=== PATIENT | female | born 2000 | race Caucasian/White ===

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

== ENCOUNTER 2019-02-01 02:09 | Emergency (ER) | payer OTHER ==
[2019-02-01 02:19] VITALS: BP 134/90; PULSE 118; RESP 15; TEMP 99
--- NOTE | 2019-02-01 02:28 | XR ---
EXAM: XR Right Ankle Complete, 3 or More Views CLINICAL HISTORY: ITS.REASON XR Reason: Pain , twisted ankle TECHNIQUE: Frontal, lateral and oblique views of the right ankle. COMPARISON: No relevant prior studies available. FINDINGS: Bones/joints: No acute fracture. Soft tissues: No radiopaque foreign body. IMPRESSION: No acute fracture.
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
== END 2019-02-01 02:54 | disposition home or self-care (01) ==
LOC: EC 02:09
DX: S93.401A Sprain of unspecified ligament of right ankle, initial encounter (principal); J45.909 Unspecified asthma, uncomplicated; F17.200 Nicotine dependence, unspecified, uncomplicated; Y04.2XXA Assault by strike against or bumped into by another person, initial encounter; Y92.89 Other specified places as the place of occurrence of the external cause
CPT/HCPCS: 99284

== ENCOUNTER 2019-02-27 07:31 | Emergency (ER) | payer OTHER ==
[2019-02-27 07:38] VITALS: BP 113/69; PULSE 80; RESP 18; TEMP 98.7
[2019-02-27 08:09] LABS: Appearance,Urine Clear (Clear); Bilirubin,Urine Negative (Negative); Blood,Urine Negative (Negative); Color,Urine Yellow; Glucose,Urine (UA) Negative (Negative); Ketones,Urine Negative (Negative); Leukocyte Esterase,Urine Negative (Negative); Nitrite,Urine Negative (Negative); Protein,Urine Negative (Negative); Specific Gravity,Urine 1.013 (1.001-1.035); Urobilinogen,Urine <2.0 mg/dL (<2.0)
--- NOTE | 2019-02-27 08:14 | ED ---
General Adult HPI - General Chief complaint: Abdominal Pain Stated complaint: Abd Pain Time Seen by Provider: 02/27/19 08:06 Source: patient, RN notes reviewed, old records reviewed Mode of arrival: ambulatory Limitations: no limitations - History of Present Illness Initial comments: Patient is a 18-year-old female who presents emergency room today with 1 day of vaginal cramping. She reports over the past 3 days she's been having brown odor vaginal discharge. Patient states that she did take a test few days: Is negative. Patient reports last menstrual period was December 15. Patient states that she has had no fevers or chills. She denies any diarrhea. She denies dysuria or hematuria. - Related Data Home Medications Medication Instructions Recorded Confirmed Albuterol Inhaler [Ventolin Hfa 1 - 2 puff INHALATION RT-Q6H PRN 08/23/17 08/23/17 Inhaler] Previous Rx's Medication Instructions Recorded Nitrofurantoin Monohyd/M-Cryst 100 mg PO Q12HR #14 cap 08/24/17 [Macrobid] Ibuprofen [Motrin] 600 mg PO Q8HR PRN #30 tab 02/01/19 Allergies Allergy/AdvReac Type Severity Reaction Status Date / Time No Known Allergies Allergy Verified 02/27/19 07:38 Review of Systems ROS Statement: Those systems with pertinent positive or pertinent negative responses have been documented in the HPI. ROS Other: All systems not noted in ROS Statement are negative. Past Medical History Past Medical History: Asthma History of Any Multi-Drug Resistant Organisms: MRSA Date of last positivie culture/infection: 2014 MDRO Source:: right cat Past Surgical History: No Surgical Hx Reported Past Anesthesia/Blood Transfusion Reactions: No Reported Reaction Past Psychological History: Anxiety Smoking Status: Current every day smoker Past Alcohol Use History: Occasional Past Drug Use History: None Reported - Past Family History Father History Unknown: Yes Family Medical History: No Reported History General Exam - General Exam Comments Initial Comments: 18-year-old female. Alert and oriented 3. Patient appears in no significant distress. Limitations: no limitations General appearance: alert, in no apparent distress Head exam: Present: atraumatic, normocephalic, normal inspection Eye exam: Present: normal appearance, PERRL, EOMI. Absent: scleral icterus, conjunctival injection, periorbital swelling ENT exam: Present: normal exam, mucous membranes moist Neck exam: Present: normal inspection. Absent: tenderness, meningismus, lymphadenopathy Respiratory exam: Present: normal lung sounds bilaterally. Absent: respiratory distress, wheezes, rales, rhonchi, stridor Cardiovascular Exam: Present: regular rate, normal rhythm, normal heart sounds. Absent: systolic murmur, diastolic murmur, rubs, gallop, clicks GI/Abdominal exam: Present: soft, normal bowel sounds. Absent: distended, tenderness, guarding, rebound, rigid External exam: Present: normal external exam Speculum exam: Present: other (tampon retained in vaginal vault, foul odor noted. ). Absent: normal speculum exam, vaginal discharge, cervical discharge, vaginal bleeding, foreign body By manual exam: Present: normal by manual exam. Absent: cervical motion tenderness, adnexal tenderness Extremities exam: Present: normal inspection, full ROM, normal capillary refill. Absent: tenderness, pedal edema, joint swelling, calf tenderness Back exam: Present: normal inspection Neurological exam: Present: alert, oriented X3, CN II-XII intact Psychiatric exam: Present: normal affect, normal mood Skin exam: Present: warm, dry, intact, normal color. Absent: rash Course Vital Signs 02/27/19 07:36 Temperature 98.7 F Pulse Rate 80 Respiratory 18 Rate Blood Pressure 113/69 O2 Sat by Pulse 99 Oximetry Medical Decision Making - Medical Decision Making 18-year-old female presents emergency times a day for vaginal discharge and br own and foul odor. She complains of cramping. No fevers or chills. Urinalysis negative for infection and . On speculum exam I noted the Patient had a retained tampon that was brown discharge. This was easily removed. Patient tolerated procedure well. She has no signs or symptoms of the sciatic TSS. Patient has no fevers chills or body aches. Discussed the Patient if the symptoms were to occur she should return. Patient agrees to treatment plan will comply. Return parameters were discussed. - Lab Data Lab Results 02/27/19 02/27/19 Range/Units 08:00 08:00 Urine Color Yellow Urine Appearance Clear (Clear) Urine pH 7.0 (5.0-8.0) Ur Specific [place] 1.013 (1.001-1.035) Urine Protein Negative (Negative) Urine Glucose (UA) Negative (Negative) Urine Ketones Negative (Negative) Urine Blood Negative (Negative) Urine Nitrite Negative (Negative) Urine Bilirubin Negative (Negative) Urine Urobilinogen <2.0 (<2.0) mg/dL Ur Leukocyte Esterase Negative (Negative) Urine HCG, Qual Not Detected (Not Detectd) Disposition Clinical Impression: Retained tampon Disposition: HOME SELF-CARE Condition: Good Instructions (If sedation given, give patient instructions): Vaginal Discharge (ED) Additional Instructions: Patient develops any fevers chills body aches or rashes please return to ED for reevaluation. Patient should've close follow-up with primary care provider. No further use of tampons. Is patient prescribed a controlled substance at d/c from ED?: No Referrals: None,Stated [Primary Care Provider] - 1-2 days Time of Disposition: 08:47
== END 2019-02-27 08:56 | disposition home or self-care (01) ==
LOC: EC 07:31
DX: T19.2XXA Foreign body in vulva and vagina, initial encounter (principal); J45.909 Unspecified asthma, uncomplicated; Z86.14 Personal history of Methicillin resistant Staphylococcus aureus infection; F17.200 Nicotine dependence, unspecified, uncomplicated
CPT/HCPCS: 81003; 81025; 99284

== ENCOUNTER 2019-04-09 18:24 | Emergency (ER) | payer OTHER ==
[2019-04-09 18:40] VITALS: RESP 18; TEMP 98.9
[2019-04-09 19:08] LABS: Appearance,Urine Clear (Clear); Bilirubin,Urine Negative (Negative); Blood,Urine Negative (Negative); Color,Urine Yellow; Glucose,Urine (UA) Negative (Negative); Ketones,Urine Negative (Negative); Leukocyte Esterase,Urine Trace (Negative); Mucus,Urine Many /hpf; Nitrite,Urine Negative (Negative); PH, Urine 5.5 (5.0-8.0); Protein,Urine Trace (Negative); RBC,Urine 3 /hpf (0-5); Specific Gravity,Urine 1.038 (1.001-1.035); Squamous Epithelial Cell,Urine 4 /hpf (0-4); Urobilinogen,Urine <2.0 mg/dL (<2.0); WBC,Urine 1 /hpf (0-5)
--- NOTE | 2019-04-09 19:21 | ED ---
Female Urogenital HPI - General Chief complaint: Urogenital Stated complaint: Poss UTI Time Seen by Provider: 04/09/19 18:47 Source: patient Mode of arrival: ambulatory Limitations: no limitations - History of Present Illness Initial comments: 18-year-old female patient presents to the emergency department today for evaluation of dysuria. Patient states that symptoms started this morning. Patient states she has a vague general discomfort to the genital region that worsens with urination. Denies any hematuria or urinary frequency with this. Patient states symptoms feel similar which is had a UTI in the past. Patient states she has had 6 positive tests at home. He denies any abdominal pain. Denies any fever or chills. Denies any vaginal bleeding or discharge. Denies any concern for sexually transmitted infections. States that her first [facility] [employer] [facility] appointment is on 04/24/2019. She is unsure when her last period was states it was a "few months ago". She is G0. Patient denies any recent rash, shortness breath, chest pain, nausea, vomiting, diarrhea, constipation, back pain, numbness, tingling, dizziness, weakness, headache, visual changes, or any other complaints. - Related Data Home Medications Medication Instructions Recorded Confirmed Albuterol Inhaler [Ventolin Hfa 1 - 2 puff INHALATION RT-Q6H PRN 08/23/17 02/27/19 Inhaler] Allergies Allergy/AdvReac Type Severity Reaction Status Date / Time No Known Allergies Allergy Verified 04/09/19 18:40 Review of Systems ROS Statement: Those systems with pertinent positive or pertinent negative responses have been documented in the HPI. ROS Other: All systems not noted in ROS Statement are negative. Past Medical History Past Medical History: Asthma History of Any Multi-Drug Resistant Organisms: MRSA Date of last positivie culture/infection: 2014 MDRO Source:: right cat Past Surgical History: No Surgical Hx Reported Past Anesthesia/Blood Transfusion Reactions: No Reported Reaction Past Psychological History: Anxiety Smoking Status: Current every day smoker Past Alcohol Use History: Occasional Past Drug Use History: None Reported - Past Family History Father History Unknown: Yes Family Medical History: No Reported History General Exam Limitations: no limitations General appearance: alert, in no apparent distress, other (Physical well- developed, well-nourished adult female patient in no acute distress. Vital signs upon presentation are temperature 98.9F, pulse 78, respirations 18, blood pressure 129/83, pulse ox 98% on room air.) Eye exam: Present: normal appearance, PERRL, EOMI. Absent: scleral icterus, conjunctival injection, periorbital swelling ENT exam: Present: normal exam, normal oropharynx, mucous membranes moist Respiratory exam: Present: normal lung sounds bilaterally. Absent: respiratory distress, wheezes, rales, rhonchi, stridor Cardiovascular Exam: Present: regular rate, normal rhythm, normal heart sounds. Absent: systolic murmur, diastolic murmur, rubs, gallop, clicks GI/Abdominal exam: Present: soft, normal bowel sounds. Absent: distended, tenderness, guarding, rebound, rigid Back exam: Present: normal inspection. Absent: CVA tenderness (R), CVA tenderness (L) Neurological exam: Present: alert, oriented X3, CN II-XII intact Psychiatric exam: Present: normal affect, normal mood Skin exam: Present: warm, dry, intact, normal color. Absent: rash Course Vital Signs 04/09/19 04/09/19 18:37 19:30 Temperature 98.9 F Pulse Rate 78 96 Respiratory 18 18 Rate Blood Pressure 129/83 132/64 O2 Sat by Pulse 98 98 Oximetry Medical Decision Making - Medical Decision Making 18-year-old female patient presented to the emergency department today for evaluation of dysuria and requesting test. Physical examination is unremarkable. There is no CVA tenderness. No abdominal tenderness. Patient denied vaginal bleeding or discharge. Denied chance of STDs. We did check urine sample showed no signs of infection. She did have a positive test here. Patient will be discharged at this time with instructions to increase fluid intake. She is instructed to follow-up with the [facility] as well as [facility] for recheck as soon as possible. Return parameters were discussed in detail patient verbalizes understanding and agrees with this plan. - Lab Data Lab Results 04/09/19 04/09/19 Range/Units 18:05 18:47 Urine Color Yellow Urine Appearance Clear (Clear) Urine pH 5.5 (5.0-8.0) Ur Specific [place] 1.038 H (1.001-1.035) Urine Protein Trace H (Negative) Urine Glucose (UA) Negative (Negative) Urine Ketones Negative (Negative) Urine Blood Negative (Negative) Urine Nitrite Negative (Negative) Urine Bilirubin Negative (Negative) Urine Urobilinogen <2.0 (<2.0) mg/dL Ur Leukocyte Esterase Trace H (Negative) Urine RBC 3 (0-5) /hpf Urine WBC 1 (0-5) /hpf Ur Squamous Epith Cells 4 (0-4) /hpf Urine Mucus Many H (None) /hpf Urine HCG, Qual Detected (Not Detectd) Disposition Clinical Impression: Dysuria, Disposition: HOME SELF-CARE Condition: Good Instructions (If sedation given, give patient instructions): (ED), Dysuria (ED) Additional Instructions: Increase fluids. Follow-up with the [facility] for further evaluation. Follow up with [facility] for recheck this as possible. Return to the emergency department immediately for any new, worsening, or concerning symptoms. Is patient prescribed a controlled substance at d/c from ED?: No Referrals: None,Stated [Primary Care Provider] - 1-2 days Time of Disposition: 19:21
[2019-04-09 19:38] VITALS: BP 132/64; PULSE 96
== END 2019-04-09 19:30 | disposition home or self-care (01) ==
LOC: EC 18:24
DX: O99.89 Other specified diseases and conditions complicating pregnancy, childbirth and the puerperium (principal); R30.0 Dysuria; Z3A.01 Less than 8 weeks gestation of pregnancy; Z32.01 Encounter for pregnancy test, result positive; J45.909 Unspecified asthma, uncomplicated; F17.200 Nicotine dependence, unspecified, uncomplicated; Z86.14 Personal history of Methicillin resistant Staphylococcus aureus infection
CPT/HCPCS: 81001; 81025; 99283

== ENCOUNTER → 2019-04-24 | Outpatient (CLI) | payer OTHER ==
--- NOTE | 2019-04-24 12:43 | US ---
EXAMINATION TYPE: Transabdominal DATE OF EXAM: 04/24/2019 12:04 PM COMPARISON: NONE CLINICAL HISTORY: absent heart tones, O76.5 Z36 confirm dates. Sent from Dr. Dave's office for a bsent heart tones EXAM PERFORMED: EXAM MEASUREMENTS: GESTATIONAL AGE / DATING Physician Established: Not established yet Dates by LMP: Unknown Dates by First Scan: This is 1st scan Dates by Current Scan for: (6 weeks/2 days) EDC: 12/16/2019 MATERNAL ANATOMY Uterus: 8.2 x 4.1 x 5.6cm, anteverted Right Ovary: 2.2 x 1.5 x 1.7cm Left Ovary: 3.0 x 2.0 x 1.9cm Post CDS / Adnexa: wnl Presence of free fluid: no Presence of corpus luteal cyst: not seen Presence of subchorionic bleed: no GESTATION / SURVEY CRL: 0.5cm (6 weeks/1 days) MSD: 1.5cm (6 weeks/2 days) Yolk Sac (normal less than 6mm): 4.6mm Heart Rate: 128 bpm Rhythm: Normal IUP: Viable IUP Date of LMP: Unknown Beta HcG (if available): Not available at time of exam Viable single IUP measuring 6 weeks 2 days with a heart rate of 128bpm and an estimated delivery date of 12/16/2019. IMPRESSION: Single intrauterine gestation estimated at 6 weeks 2 days chest patient with a heart rate measured 12 8 bpm.
== END | disposition home or self-care (01) ==
LOC: RADUSWWP 11:34
PROVIDERS: ATTEND Obstetrics & Gynecology
DX: Z36.89 Encounter for other specified antenatal screening (principal)
CPT/HCPCS: 76801; 76817

== ENCOUNTER → 2019-09-09 | Outpatient (CLI) | payer OTHER ==
[2019-09-09 16:00] LABS: HCT 33.9 % (34.0-46.0); HGB 11.1 gm/dL (11.4-16.0); MCH 28.4 pg (25.0-35.0); MCHC 32.8 g/dL (31.0-37.0); MCV 86.7 fL (80.0-100.0); Mean Platelet Volume 7.5; Platelet Count 318 k/uL (150-450); Poikilocytosis Slight; RBC 3.91 m/uL (3.80-5.40); RDW 13.5 % (11.5-15.5); WBC 10.1 k/uL (4.0-11.0)
[2019-09-10 01:43] LABS: Hepatitis B Surface Antigen Non-Reactive (Non-Reactive)
[2019-09-10 02:36] LABS: HIV 1 AB Non-Reactive (Non-Reactive); HIV 2 AB Non-Reactive (Non-Reactive); HIV AB P24 Non-Reactive (Non-Reactive); HIV P24 AG Non-Reactive (Non-Reactive)
[2019-09-10 03:30] LABS: Toxoplasma Antibody (IgG) <3.0 IU/mL (<7.2); Toxoplasma Antibody (IgM) 5.6 AU/mL (<8.0)
== END | disposition home or self-care (01) ==
LOC: LABWHC1 14:06
PROVIDERS: ATTEND Obstetrics & Gynecology
DX: Z34.82 Encounter for supervision of other normal pregnancy, second trimester (principal)
CPT/HCPCS: 36415; 82565; 82947; 82950; 85027; 86762; 86777; 86778; 86780; 86850; 86900; 86901; 87340; 87390

== ENCOUNTER 2019-11-20 11:10 | Observation (INO) | payer OTHER ==
[2019-11-20 12:55] LABS: Amorphous Sediment,Urine Rare /hpf; Appearance,Urine Cloudy (Clear); Bacteria,Urine Rare /hpf; Bilirubin,Urine Negative (Negative); Blood,Urine Negative (Negative); Color,Urine Yellow; Glucose,Urine (UA) Negative (Negative); Ketones,Urine Negative (Negative); Leukocyte Esterase,Urine Moderate (Negative); Mucus,Urine Moderate /hpf; Nitrite,Urine Negative (Negative); PH, Urine 6.5 (5.0-8.0); Protein,Urine Trace (Negative); RBC,Urine 1 /hpf (0-5); Specific Gravity,Urine 1.018 (1.001-1.035); Squamous Epithelial Cell,Urine 7 /hpf (0-4); Urobilinogen,Urine <2.0 mg/dL (<2.0); WBC,Urine 5 /hpf (0-5)
[2019-11-20 12:55] LABS: Basophils % (A) 0 %; Eosinophils # (A) 0.1 k/uL (0-0.7); Eosinophils % (A) 1 %; HCT 29.9 % (34.0-46.0); HGB 9.7 gm/dL (11.4-16.0); Hypochromasia Marked; Lymphocytes # (A) 1.1 k/uL (1.0-4.8); Lymphocytes % (A) 12 %; MCH 24.8 pg (25.0-35.0); MCHC 32.3 g/dL (31.0-37.0); MCV 76.7 fL (80.0-100.0); Mean Platelet Volume 9.9; Microcytosis Slight; Monocytes # (A) 0.5 k/uL (0-1.0); Monocytes % (A) 6 %; Neutrophils # (A) 6.9 k/uL (1.3-7.7); Neutrophils % (A) 79 %; Platelet Count 259 k/uL (150-450); Poikilocytosis Slight; RDW 14.9 % (11.5-15.5); WBC 8.7 k/uL (4.0-11.0)
[2019-11-20 12:59] LABS: ALT 11 U/L (4-34); AST 20 U/L (14-36); African American GFR (CKD) >90 (>60 ml/min/1.73 sqM); Albumin 3.4 g/dL (3.5-5.0); Alkaline Phosphatase 130 U/L (38-126); Anion Gap 9 mmol/L; Blood Urea Nitrogen 8 mg/dL (7-17); Calcium 9.8 mg/dL (8.4-10.2); Carbon Dioxide 21 mmol/L (22-30); Chloride 107 mmol/L (98-107); Glucose 89 mg/dL (74-99); Non-African American GFR(CKD) >90 (>60 ml/min/1.73 sqM); Potassium 4.3 mmol/L (3.5-5.1); Sodium 137 mmol/L (137-145); Total Bilirubin 0.3 mg/dL (0.2-1.3); Total Protein 6.6 g/dL (6.3-8.2)
--- NOTE | 2019-11-20 17:33 | P.HPOB ---
History of Present Illness H&P Date: 11/20/19 Chief Complaint: Intrauterine Brixey 37 weeks: Near-syncope So is a 19-year-old at 37 weeks gestation who arrives to my office complaining of severe lightheadedness and worsening nausea and vomiting over the last approximately 1 week. She relates that symptoms of, and all of a sudden and multiple times a day she begins to get very very lightheaded and even when she sitting down feels like she is given a pass out. She was sent to labor and delivery for blood work and monitoring and during her initial presentation she had a maternal tachycardic episode in the 230s. A cardiology consult has been ordered as has a EKG. Other labs that were reviewed were generally unremarkable. A category 1 tracing is noted and the baby during that episode did not seem to be affected. Her course up until today was generally unremarkable. She was feeling well all the way up until the last approximately week or so. Group B strep was done and was positive. As no sign or symptom of leaking of fluid however. Unclear etiology potentially SVT versus other Will await cardiology confirmation and evaluation. All other questions were answered for her at this time. Her maternal heart rate at this time is in the 90s. She is likely going to have to be transferred off of the labor and delivery unit for remote monitoring for cardiology. Her NST is reactive otherwise. Past Medical History Past Medical History: Asthma History of Any Multi-Drug Resistant Organisms: None Reported, MRSA Date of last positivie culture/infection: 2014 MDRO Source:: right cat Past Surgical History: No Surgical Hx Reported Past Anesthesia/Blood Transfusion Reactions: No Reported Reaction Smoking Status: Never smoker - Past Family History Father History Unknown: Yes Family Medical History: No Reported History Medications and Allergies Home Medications Medication Instructions Recorded Confirmed Type Albuterol Inhaler [Ventolin Hfa 1 - 2 puff INHALATION RT-Q6H PRN 08/23/17 02/27/19 History Inhaler] Allergies Allergy/AdvReac Type Severity Reaction Status Date / Time No Known Allergies Allergy Verified 04/09/19 18:40 Exam Osteopathic Statement: *. No significant issues noted on an osteopathic structural exam other than those noted in the History and Physical/Consult. Vital Signs Temp Pulse Resp BP 11/20/19 11:32 97.7 F 110 H 16 131/66 Intake and Output 11/20/19 11/20/19 11/20/19 06:59 14:59 22:59 Other: Weight 85.275 kg - OBG Physical Exam Breast: both: normal (no masses) Abdomen: bowel sounds normal, no diffuse tenderness, no bruit present, no guarding noted, no hepatomegaly, no splenomegaly, no mass Vulva: both: normal Vagina: normal moisture, no discharge Cervix: no lesion, no discharge Uterus: normal size, normal contour Adnexa: both: normal Anus/Rectum: normal perianal skin, no rectal mass, no hemorrhoids, heme negative Results Result Diagrams: 11/20/19 12:25 11/20/19 12:25 Abnormal Lab Results - Last 24 Hours (Table) 11/20/19 11/20/19 11/20/19 Range/Units 12:20 12:25 12:25 Hgb 9.7 L (11.4-16.0) gm/dL Hct 29.9 L (34.0-46.0) % MCV 76.7 L (80.0-100.0) fL MCH 24.8 L (25.0-35.0) pg Carbon Dioxide 21 L (22-30) mmol/L Creatinine 0.45 L (0.52-1.04) mg/dL Alkaline Phosphatase 130 H (38-126) U/L Albumin 3.4 L (3.5-5.0) g/dL Urine Appearance Cloudy H (Clear) Urine Protein Trace H (Negative) Ur Leukocyte Esterase Moderate H (Negative) Ur Squamous Epith Cells 7 H (0-4) /hpf Amorphous Sediment Rare H (None) /hpf Urine Bacteria Rare H (None) /hpf Urine Mucus Moderate H (None) /hpf
[2019-11-21] MEDS: PRENATAL VIT-IRON-FOLIC ACID 1 EACH CAP PO SCH (09:16)
[2019-11-21] MEDS: CALCIUM CARBONATE 500 MG CHEWABLE PO PRN (12:04)
--- NOTE | 2019-11-21 12:42 | P.PN ---
Progress Note - Text Progress Note Date: 11/21/19 Patient is seen. She denies any contractions. She has been feeling good movement. She denies any episodes of shortness of breath or heart racing at this time. She states these episodes typically happen when she is up moving and not in bed. She has seen a nurse practitioner and did have an echocardiogram but has not seen the township clerk yet. No recommendations have been given by cardiology at this point. Impression is intrauterine at 37 weeks, episode of tachycardia, rule out SVT or other cardiac issues. Plan is to wait cardiology recommendations. Patient is encouraged to ambulate the halls while she is in the hospital and advised that she does not have to stay in bed. She may be discharged home once she is cleared by cardiology. She does have a follow-up appointment Dr. Dave on Saturday.
--- NOTE | 2019-11-21 13:03 | P.CRDCN ---
History of Present Illness Consult date: 11/21/19 Requesting physician: Zana Dave Reason for Consult (text): symptomatic tachycardia Chief complaint: elevated HR, nausea, lightheadedness History of present illness: Is a pleasant 19-year-old female patient who is 37 weeks with no significant past medical history. Presented to the hospital with complaints of recurrent nausea, palpitations and lightheadedness with activity. Since admission telemetry monitoring has shown sinus rhythm with episodes of sinus tachycardia. She does state that the episodes usually only occur with activity and she has not been very active since admission. She's been mostly lying in bed and only getting up to go to the bathroom. Laboratory values on admission showed a hemoglobin of 9.7, BUN 8, creatinine 0.45 normal TSH. Vital signs stable with a heart rate as high as 122. She's been afebrile. Upon examination, the patient is sitting up in bed. Main complaint at this time is indigestion and heartburn. She denies complaints of dizziness or lightheadedness, nausea or feeling a rapid heart beat however she has not been very active. Did complain of a headache this morning which has resolved. She denies complaints prior to of palpitations, dizziness or lightheadedness. There is been no evidence of malignant arrhythmia on telemetry thus far. Past Medical History Past Medical History: Asthma History of Any Multi-Drug Resistant Organisms: None Reported, MRSA Date of last positivie culture/infection: 2014 MDRO Source:: right cat Past Surgical History: No Surgical Hx Reported Past Anesthesia/Blood Transfusion Reactions: No Reported Reaction Smoking Status: Never smoker - Past Family History Father History Unknown: Yes Family Medical History: No Reported History Medications and Allergies Home Medications Medication Instructions Recorded Confirmed Type Albuterol Inhaler [Ventolin Hfa 1 - 2 puff INHALATION RT-Q6H PRN 08/23/17 11/20/19 History Inhaler] Allergies Allergy/AdvReac Type Severity Reaction Status Date / Time No Known Allergies Allergy Verified 11/20/19 20:36 Physical Exam Vitals: Vital Signs Temp Pulse Pulse Resp BP BP BP 11/21/19 05:00 97.9 F 95 16 101/59 97/54 11/20/19 19:45 97.8 F 83 18 126/56 11/20/19 13:57 97.7 F 122 H 16 131/66 Pulse Ox 11/21/19 05:00 95 11/20/19 19:45 96 11/20/19 13:57 Intake and Output 11/20/19 11/21/19 11/21/19 22:59 06:59 14:59 Intake Total 600 600 Balance 600 600 Intake: Oral 600 600 Other: Voiding Method Toilet Toilet # Voids 4 3 PHYSICAL EXAMINATION: HEENT: Head is atraumatic, normocephalic. Pupils equal, round. Neck is supple. There is no elevated jugular venous pressure. HEART EXAMINATION: Heart sounds regular, S1 and S2 normal. No murmur or gallop heard. CHEST EXAMINATION: Lungs are clear to auscultation and precussion. No chest wall tenderness is noted on palpation or with deep breathing. ABDOMEN: Soft, nontender. Bowel sounds are heard. No organomegaly noted. EXTREMITIES: 2+ peripheral pulses with no evidence of peripheral edema and no calf tenderness noted. NEUROLOGIC patient is awake, alert and oriented x3. . Results 11/20/19 12:25 11/20/19 12:25 Cardiac Enzymes 11/20/19 Range/Units 12:25 AST 20 (14-36) U/L CBC 11/20/19 Range/Units 12:25 WBC 8.7 (4.0-11.0) k/uL RBC 3.90 (3.80-5.40) m/uL Hgb 9.7 L (11.4-16.0) gm/dL Hct 29.9 L (34.0-46.0) % Plt Count 259 (150-450) k/uL Comprehensive Metabolic Panel 11/20/19 Range/Units 12:25 Sodium 137 (137-145) mmol/L Potassium 4.3 (3.5-5.1) mmol/L Chloride 107 (98-107) mmol/L Carbon Dioxide 21 L (22-30) mmol/L BUN 8 (7-17) mg/dL Creatinine 0.45 L (0.52-1.04) mg/dL Glucose 89 (74-99) mg/dL Calcium 9.8 (8.4-10.2) mg/dL AST 20 (14-36) U/L ALT 11 (4-34) U/L Alkaline Phosphatase 130 H (38-126) U/L Total Protein 6.6 (6.3-8.2) g/dL Albumin 3.4 L (3.5-5.0) g/dL Current Medications Generic Name Dose Route Start Last Admin Trade Name Freq PRN Reason Stop Dose Admin Calcium Carbonate/Glycine 500 mg 11/21/19 11:30 11/21/19 12:04 Tums PO 500 mg QID PRN Administration Heartburn Multivi/Iron Carb/Fe Sulf/FA/Prenat 1 each 11/21/19 09:00 11/21/19 09:16 -U Capsule PO 1 each DAILY DOREEN Administration Intake and Output 11/20/19 11/21/19 11/21/19 22:59 06:59 14:59 Intake Total 600 600 Balance 600 600 Intake: Oral 600 600 Other: Voiding Method Toilet Toilet # Voids 4 3 11/20/19 12:25 11/20/19 12:25 Assessment and Plan Assessment: #1 symptoms of lightheadedness, nausea and feeling a rapid heart beat no malignant arrhythmias documented thus far however H&P does mention tachycardic episode with a heart rate in the 230s upon presentation to labor and delivery unit Plan: From hand cutter perspective, we will obtain a 2-D echo with Doppler. Increase the patient's activity as symptoms usually only occur when the patient is active. We will continue to monitor for signs of arrhythmia such as SVT. Depending on patient's symptoms and findings of echocardiogram and telemetry monitoring further recommendations will be made. SLICE PLUG CUTTER OPERATOR HELPER note has been reviewed, I agree with a documented findings and plan of care. Patient was seen and examined.
--- NOTE | 2019-11-21 16:45 | ECHOF ---
Referral Reason:symptomatic tachycardia MEASUREMENTS -------- HEIGHT: 157.5 cm WEIGHT: 89.8 kg BP: RVIDd: 3.2 cm (< 3.3) IVSd: 1.0 cm (0.6 - 1.1) LVIDd: 4.4 cm (3.9 - 5.3) LVPWd: 1.4 cm (0.6 - 1.1) IVSs: 1.2 cm LVIDs: 3.1 cm LVPWs: 1.8 cm LA Diam: 3.2 cm (2.7 - 3.8) Ao Diam: 2.8 cm (2.0 - 3.7) AV Cusp: 1.9 cm (1.5 - 2.6) LA Diam: 3.4 cm (2.7 - 3.8) MV EXCURSION: 19.740 mm (> 18.000) MV EF SLOPE: 130 mm/s (70 - 150) EPSS: 0.4 cm MV E Keith: 0.73 m/s MV DecT: 189 ms MV A Keith: 0.41 m/s MV E/A Ratio: 1.77 RAP: 5.00 mmHg RVSP: 16.77 mmHg FINDINGS -------- Sinus rhythm. This was a technically good study. LV size, wall thickness and systolic function are normal, with an EF greater than 55%. The left petrona tricular size is normal. Overall left ventricular systolic function is normal with, an EF between 5 5 - 60 %. The right ventricle is normal in size. The left atrial size is normal. The right atrial size is normal. The aortic valve is trileaflet, and appears structurally normal. No aortic stenosis or regurgitation. Mild mitral regurgitation is present. Mild tricuspid regurgitation present. Right ventricular systolic pressure is normal at < 35 mmHg. There is no evidence of pulmonary hypertension. There is no pulmonic regurgitation present. The aortic root size is normal. There is no pericardial effusion. CONCLUSIONS -------- 1. Sinus rhythm. 2. This was a technically good study. 3. LV size, wall thickness and systolic function are normal, with an EF greater than 55%. 4. The left ventricular size is normal. 5. Overall left ventricular systolic function is normal with, an EF between 55 - 60 %. 6. The right ventricle is normal in size. 7. The left atrial size is normal. 8. The right atrial size is normal. 9. The aortic valve is trileaflet, and appears structurally normal. No aortic stenosis or regurgitati on. 10. Mild mitral regurgitation is present. 11. Mild tricuspid regurgitation present. 12. Right ventricular systolic pressure is normal at < 35 mmHg. 13. There is no evidence of pulmonary hypertension. 14. There is no pulmonic regurgitation present. 15. The aortic root size is normal. 16. There is no pericardial effusion. CRAWLER TRACTOR OPERATOR: Karlene Perez RDCS
[2019-11-22] MEDS: CALCIUM CARBONATE 500 MG CHEWABLE PO PRN (04:46)
[2019-11-22 05:12] VITALS: BP 103/55; PULSE 92; RESP 18; TEMP 98.4
--- NOTE | 2019-11-22 08:56 | P.DS ---
Providers Date of admission: 11/20/19 13:19 Expected date of discharge: 11/22/19 Attending physician: Zana Dave Consults: 11/20/19 13:20 Consult Physician Urgent Consulting Provider: Rajni Logan Consult Reason/Comments: symptomatic tachycardia Do you want consulting provider notified?: Yes Primary care physician: Stated None Hospital Course: This is a 19-year-old female at 37 weeks gestation who presented with complaints of episodes of shortness of breath and heart racing. Upon arrival to obstetrical triage, her heart rate was in the 230s. Nonstress test on the baby have been within normal limits. She was placed on cardiac monitoring with telemetry and did undergo an echocardiogram. From my reading of the echocardiogram, it appears normal. The patient denies any further episodes of symptoms. She denies any contractions. She is feeling good movement. She is anxious to go home today. She will be discharged home today after cardiology clears her. She will follow up with Dr. Dave on Saturday as scheduled. Follow-up with cardiology to be determined. She is advised to return to the hospital if she becomes symptomatic again. She is advised to call if she has any further questions or concerns. Patient Condition at Discharge: Stable Plan - Discharge Summary New Discharge Prescriptions: No Action Albuterol Inhaler [Ventolin Hfa Inhaler] 1 - 2 puff INHALATION RT-Q6H PRN PRN Reason: Shortness Of Breath Discharge Medication List Albuterol Inhaler [Ventolin Hfa Inhaler] 1 - 2 puff INHALATION RT-Q6H PRN 08/23/17 [History] Follow up Appointment(s)/Referral(s): Zana Dave DO [Doctor of Osteopathic Medicine] - 11/27/19 Discharge Disposition: HOME SELF-CARE
[2019-11-22] MEDS: PRENATAL VIT-IRON-FOLIC ACID 1 EACH CAP PO SCH (09:08)
--- NOTE | 2019-11-22 10:35 | PN ---
PROGRESS NOTE Mrs. King is a 19-year-old female who is due in December, presented with symptoms of tachycardia. She is doing well this morning. On the monitor, she had no evidence of tachyarrhythmia, no SVT or atrial fibrillation. She is feeling well. No dizziness. No palpitation. She has been ambulating. She underwent an echocardiogram yesterday that revealed preserved left ventricular size and systolic function with mild mitral and tricuspid regurgitation with no evidence of pulmonary hypertension. PHYSICAL EXAMINATION: Blood pressure 103/50 with a heart rate in the 90s. LUNGS: Clear. Heart regular rate and rhythm S1, S2. No S3 with systolic murmur. No diastolic murmur. ABDOMEN: Soft. EXTREMITIES: No edema. IMPRESSION: 1. Gestation due in December. 2. Episode of tachycardia with no documented malignant arrhythmia. RECOMMENDATIONS: From the cardiac standpoint, she should be able to be discharged home today. I have discussed with her that after her delivery, if she has any episode of tachyarrhythmia to give us a call in the office, we will be glad to see her. MMODL / IJN: [id number] /
== END 2019-11-22 12:10 | disposition home or self-care (01) ==
LOC: FBPOP 11:10 → 4FBP 13:19 → 5NMEDONC 19:41
PROVIDERS: ADMIT Obstetrics & Gynecology; ATTEND Obstetrics & Gynecology
DX: O99.413 Diseases of the circulatory system complicating pregnancy, third trimester (principal); I08.1 Rheumatic disorders of both mitral and tricuspid valves; O21.2 Late vomiting of pregnancy; O99.513 Diseases of the respiratory system complicating pregnancy, third trimester; J45.909 Unspecified asthma, uncomplicated; Z3A.37 37 weeks gestation of pregnancy; Z86.14 Personal history of Methicillin resistant Staphylococcus aureus infection; Z79.51 Long term (current) use of inhaled steroids
CPT/HCPCS: 59025; 93306; 93005; 80053; 83735; 84443; 85025; 81001; G0378 ×4; S0197 ×2

== ENCOUNTER 2019-12-09 06:00 | Inpatient (IN) | payer OTHER ==
[2019-12-15] MEDS ORDERED: OXYTOCIN 10 UNIT/ML 1 ML VIAL IM PRN (06:36)
[2019-12-15] MEDS ORDERED: AMPICILLIN 2,000 MG in SODIUM CHLORIDE 0.9% 100 ML IVPB STA (06:36)
[2019-12-15] MEDS ORDERED: TERBUTALINE 1 MG/ML VIAL SQ PRN (06:36)
[2019-12-15] MEDS ORDERED: CARBOPROST TROMETHAMINE 250 MCG/ML 1 ML AMP IM PRN (06:36)
[2019-12-15] MEDS ORDERED: METHYLERGONOVINE 0.2 MG/ML 1 ML AMP IM PRN (06:36)
[2019-12-15] MEDS ORDERED: LIDOCAINE 0.5% (PF) 5 MG/ML (50 ML SDV) SQ PRN (06:36)
[2019-12-15] MEDS: LACTATED RINGERS 1,000 ML IV SCH ×3 (06:51→16:32)
[2019-12-15] MEDS: OXYTOCIN 30 UNITS/500 ML NS 30 UNIT in SALINE 1 500ML.BAG IV SCH (06:52)
[2019-12-15] MEDS ORDERED: BUTORPHANOL 1 MG/ML 1 ML VIAL IV PRN (07:55)
[2019-12-15 08:19] LABS: Basophils % (A) 0 %; Eosinophils # (A) 0.1 k/uL (0-0.7); Eosinophils % (A) 1 %; HCT 30.7 % (34.0-46.0); HGB 9.7 gm/dL (11.4-16.0); Hypochromasia Marked; Lymphocytes # (A) 1.5 k/uL (1.0-4.8); Lymphocytes % (A) 15 %; MCH 23.5 pg (25.0-35.0); MCHC 31.6 g/dL (31.0-37.0); MCV 74.5 fL (80.0-100.0); Mean Platelet Volume 10.5; Microcytosis Slight; Monocytes # (A) 0.7 k/uL (0-1.0); Monocytes % (A) 7 %; Neutrophils # (A) 7.4 k/uL (1.3-7.7); Neutrophils % (A) 75 %; Platelet Count 271 k/uL (150-450); Poikilocytosis Slight; RBC 4.13 m/uL (3.80-5.40); RDW 15.8 % (11.5-15.5)
[2019-12-15] MEDS: AMPICILLIN 1,000 MG in SODIUM CHLORIDE 0.9% 50 ML IVPB SCH ×3 (12:00→23:31)
[2019-12-15] MEDS ORDERED: ROPIVACAINE 5MG/ML 20ML VIAL ONE (12:21)
[2019-12-15] MEDS ORDERED: SODIUM CHLORIDE 0.9% 100 ML BAG ONE (12:21)
[2019-12-15] MEDS ORDERED: fentaNYL (PF) 50 MCG/ML 5 ML AMP ONE (12:21)
[2019-12-15] MEDS ORDERED: ROPIVACAINE 100 MG, fentaNYL (PF) 200 MCG in SODIUM CHLORIDE 0.9% 76 ML EPIDURAL ONE (14:20)
[2019-12-15] MEDS ORDERED: CITRIC ACID-SODIUM CITRATE 15 ML CUP PO ONE (19:30)
[2019-12-15] MEDS ORDERED: PROPOFOL 10 MG/ML 20 ML VIAL IV ONE (20:07)
[2019-12-15] MEDS ORDERED: SUCCINYLCHOLINE CHLORIDE 100 MG/5 ML SYR IV ONE (20:07)
[2019-12-15] MEDS ORDERED: fentaNYL (PF) 50 MCG/ML 2 ML AMP ONE (20:07)
[2019-12-15] MEDS ORDERED: OXYTOCIN 10 UNIT/ML 1 ML VIAL ONE (20:07)
[2019-12-15] MEDS ORDERED: KETOROLAC 30 MG/ML 1 ML VIAL ONE (20:07)
[2019-12-15] MEDS ORDERED: HYDROmorphone (PF) 1 MG/ML ONE (20:07)
[2019-12-15] MEDS ORDERED: ONDANSETRON 4 MG/2 ML VIAL ONE (20:07)
[2019-12-15] MEDS ORDERED: diphenhydrAMINE 25 MG CAP PO PRN (20:51)
[2019-12-15] MEDS ORDERED: SIMETHICONE 80 MG CHEWABLE PO PRN (20:51)
[2019-12-15] MEDS ORDERED: ZOLPIDEM 5 MG TAB PO PRN (20:51)
[2019-12-15] MEDS ORDERED: ACETAMINOPHEN TAB 325 MG TAB PO PRN (20:51)
[2019-12-15] MEDS ORDERED: MEASLES-MUMPS-RUBELLA VACC/PF 12,500 UNIT/0.5 ML VIAL SQ ONE (20:51)
[2019-12-15] MEDS ORDERED: diphenhydrAMINE 50 MG/ML 1 ML VIAL IVP PRN ×2 (20:51)
[2019-12-15] MEDS ORDERED: METOCLOPRAMIDE 5 MG/ML 2 ML VIAL IVP PRN (20:51)
[2019-12-15] MEDS ORDERED: ONDANSETRON 4 MG/2 ML VIAL IVP PRN (20:51)
[2019-12-15] MEDS ORDERED: diphenhydrAMINE 50 MG CAP PO PRN (20:51)
[2019-12-15] MEDS ORDERED: NALOXONE 0.4 MG/ML 1 ML VIAL IV PRN ×2 (20:51→21:05)
--- NOTE | 2019-12-15 20:56 | P.HPOB ---
History of Present Illness H&P Date: 12/15/19 Chief Complaint: Intrauterine at term: Induction of labor Patient is a 19-year-old at 39 weeks 6 days gestation who arrives for induction of labor. She had previously been scheduled last week but with onset febrile cervix she was rechecked and moved to today. She is dilated to 1-2 cm 80% effaced -3 station. Cervix is soft and artificial rupture of membranes was performed and there is light meconium noted. Otherwise her course had generally speaking been unremarkable she was group B strep positive and antibody except been started. Pertinent labs O+ blood type, Rh and it was negative, rubella nonimmune, hepatitis surface antigen and RPR were both negative. She did pass her 1 hour Glucola screen and no other issues or noted at this time. heart tones reveal a category 1 tracing. On physical exam vital signs are stable and afebrile. Heart regular, lungs clear, extremities are without pain. Abdomen soft and nontender. Positive bowel sounds are noted. Gravid uterus is noted. Past Medical History Past Medical History: Asthma History of Any Multi-Drug Resistant Organisms: MRSA Date of last positivie culture/infection: 2014 MDRO Source:: right cat Past Surgical History: No Surgical Hx Reported Past Anesthesia/Blood Transfusion Reactions: No Reported Reaction Past Psychological History: Anxiety Smoking Status: Never smoker Past Alcohol Use History: None Reported, Occasional Past Drug Use History: None Reported - Past Family History Father History Unknown: Yes Family Medical History: No Reported History Medications and Allergies Home Medications Medication Instructions Recorded Confirmed Type Albuterol Inhaler [Ventolin Hfa 1 - 2 puff INHALATION RT-Q6H PRN 08/23/17 12/15/19 History Inhaler] Allergies Allergy/AdvReac Type Severity Reaction Status Date / Time No Known Allergies Allergy Verified 12/15/19 06:35 Exam Osteopathic Statement: *. No significant issues noted on an osteopathic structural exam other than those noted in the History and Physical/Consult. Vital Signs Temp Pulse Resp BP 12/15/19 06:35 97.9 F 102 H 16 120/73 Intake and Output 12/15/19 12/15/19 12/15/19 06:59 14:59 22:59 Other: Weight 87.543 kg - OBG Physical Exam Breast: both: normal (no masses) Abdomen: bowel sounds normal, no diffuse tenderness, no bruit present, no guarding noted, no hepatomegaly, no splenomegaly, no mass Vulva: both: normal Vagina: normal moisture, no discharge Cervix: no lesion, no discharge Uterus: normal size, normal contour Adnexa: both: normal Anus/Rectum: normal perianal skin, no rectal mass, no hemorrhoids, heme negative Results Result Diagrams: 12/15/19 06:50 Abnormal Lab Results - Last 24 Hours (Table) 12/15/19 Range/Units 06:50 Hgb 9.7 L (11.4-16.0) gm/dL Hct 30.7 L (34.0-46.0) % MCV 74.5 L (80.0-100.0) fL MCH 23.5 L (25.0-35.0) pg RDW 15.8 H (11.5-15.5) %
[2019-12-15] MEDS ORDERED: LACTATED RINGERS 1,000 ML IV SCH (21:00)
--- NOTE | 2019-12-15 21:00 | P.OP ---
Date of Procedure: 12/15/19 Preoperative Diagnosis: Intrauterine at term: Nonreassuring heart tones: Pierce from delivery Postoperative Diagnosis: Same Procedure(s) Performed: Primary low-transverse section Anesthesia: YOLIE Surgeon: Zana Dave Central Office Repairer Supervisor #1: Vivien Patino Estimated Blood Loss (ml): 600 IV fluids (ml): 1,000 Urine output (ml): 200 Pathology: other (Placenta) Condition: stable Disposition: floor Operative Findings: Male scores of 9 and 9 at one and 5 minutes respectfully and the weight was 8 lbs. 13 oz. It is noted that wall laboring dilated to 6 Cm and approximate 80% effaced -3 station the heart tones had a large deceleration heart tones were essentially off the monitor meaning they were in the 30s for at least 1 minute take it slowly returned close to baseline but due to her being so remote from delivery and concerns over the fact that she had not made significant cervical change in the last few hours a decision to do an emergent section was done. She was having too much pain to try and reduce the epidural for a spinal and due to the urgency with the heart tones a decision to 4 with an emergent section was made. Risks/joshua efits/return reviewed with the patient and her spouse and she was moved to the operating room. In the operating room heart tones were in the 1 teens to 120s, but there were with each contraction small decelerations dropping from the baseline of 12/22/2019 down into the 80s to 90s. Description of Procedure: Patient was taken to the operating suite where a general anesthetic was found be adequate. She was prepped and draped in the normal sterile fashion and placed in dorsal supine position with leftward tilt. Initially a Pfannenstiel skin incision was made and this incision was then carried through to the underlying layer of the fascia. Fascia was then nicked in the midline and this opening was extended laterally with Nuñez scissors. Superior and inferior aspect of this incision were then grasped tented up and bluntly and sharply dissected off the rectus muscles. Rectus muscles were then divided in the midline and blunt dissection through the peritoneum was done. This opening was then extended superiorly and inferiorly with good visualization of both bowel bladder. Bladder blade was then placed and an incision on the uterus was made above the bladder flap. This was fully developed and bluntly opened and then head was atraumatically delivered. Mouth nares were bulb suctioned and a nuchal cord 1 that was tight was noted and easily reduced. Anterior and posterior shoulders were then delivered followed by the remainder the baby. Mouth nares were then bulb suctioned and umbilical cord was clamped cut usual fashion. Nursery personnel was present and assumed care. Placenta was then delivered intact and Pitocin was added to the IV. Uterus was then exteriorized cleared of clots and debris and closed in 2 layers with 0 Vicryl suture. Once hemostasis was obtained blood and debris was suctioned from the posterior cul-de-sac and uterus was reinserted into the abdomen. Peritoneal layer was then reapproximated with 0 Vicryl suture fascial layer was closed with 0 Vicryl suture. One layer of 3-0 Vicryl was placed in the deep subcuticular tissues to reapproximate the skin and close space. Skin was then closed with 3-0 Vicryl subcuticularly. Sponge, lap, needle counts were not double counted prior to the emergent surgery therefore an x-ray was done revealing no instrumentation or sponges in in or around the patient.
[2019-12-15] MEDS ORDERED: HYDROmorphone PCA 10 MG/50 ML BAG IV PRN (21:05)
--- NOTE | 2019-12-15 21:14 | XR ---
EXAMINATION TYPE: XR abdomen 1V DATE OF EXAM: 12/15/2019 COMPARISON: NONE HISTORY: Possible foreign body TECHNIQUE: Single view FINDINGS: Bony pelvis is intact. Bowel gas pattern is normal. There is no sign of a radiopaque foreig n body. IMPRESSION: No evidence of a foreign body in the pelvis.
[2019-12-16] MEDS: KETOROLAC 30 MG/ML 1 ML VIAL IVP PRN ×3 (02:06→16:54)
[2019-12-16 07:28] LABS: Anisocytosis Slight; Basophils # (A) 0.1 k/uL (0-0.2); Basophils % (A) 0 %; Eosinophils % (A) 0 %; HCT 26.4 % (34.0-46.0); HGB 8.4 gm/dL (11.4-16.0); Hypochromasia Marked; Lymphocytes # (A) 1.4 k/uL (1.0-4.8); Lymphocytes % (A) 10 %; MCH 23.5 pg (25.0-35.0); MCHC 31.6 g/dL (31.0-37.0); MCV 74.2 fL (80.0-100.0); Mean Platelet Volume 10.4; Microcytosis Slight; Monocytes # (A) 0.6 k/uL (0-1.0); Monocytes % (A) 4 %; Neutrophils # (A) 12.4 k/uL (1.3-7.7); Neutrophils % (A) 85 %; Platelet Count 217 k/uL (150-450); Poikilocytosis Slight; RBC 3.55 m/uL (3.80-5.40); WBC 14.7 k/uL (4.0-11.0)
[2019-12-16] MEDS: SENNOSIDES-DOCUSATE SODIUM 1 EACH TAB PO SCH ×2 (07:42→21:08)
[2019-12-16] MEDS: LACTATED RINGERS 1,000 ML IV SCH ×2 (09:03→16:53)
[2019-12-16] MEDS: OXYTOCIN 30 UNITS/500 ML NS 30 UNIT in SALINE 1 500ML.BAG IV SCH (09:03)
--- NOTE | 2019-12-16 10:31 | P.PNOBGPC ---
Subjective - Subjective Principal diagnosis: Postop day 1 Interval history: Patient is doing very well postop day 1. She is involuting, voiding and tolerating her diet. She voices no complaints and her vital signs are stable. We'll plan to keep current care for now with advancement of diet and ambulation. Patient reports: Reports appetite normal, Reports voiding normally, Reports pain well controlled, Reports ambulating normally [place]: doing well Objective - Vital Signs Latest vital signs: Vital Signs Temp Pulse Resp BP Pulse Ox 12/16/19 08:00 97.7 F 85 18 117/73 98 12/16/19 04:00 98.3 F 82 16 132/76 99 12/16/19 00:00 98.3 F 78 16 135/72 100 12/15/19 23:00 75 16 140/79 100 12/15/19 22:30 80 16 136/77 92 L 12/15/19 22:00 81 16 125/77 98 12/15/19 21:45 77 16 139/87 100 12/15/19 21:30 81 16 133/77 99 12/15/19 21:15 83 16 129/77 99 12/15/19 21:05 98 12/15/19 21:00 98.7 F 109 H 16 127/77 95 Intake and Output 12/15/19 12/16/19 12/16/19 22:59 06:59 14:59 Output Total 1000 Balance -1000 Output: Urine 1000 Uretheral (Packer) 100 Other: # Voids 1 - Exam Lungs: bilateral: normal Chest: Normal S1, Normal S2 Extremities: Present: normal Abdomen: Present: normal appearance, soft. Absent: distention, tenderness Incision: Present: normal, dry, intact Uterus: Present: normal, firm - Labs Labs: Abnormal Lab Results - Last 24 Hours (Table) 12/16/19 Range/Units 07:02 WBC 14.7 H (4.0-11.0) k/uL RBC 3.55 L (3.80-5.40) m/uL Hgb 8.4 L (11.4-16.0) gm/dL Hct 26.4 L (34.0-46.0) % MCV 74.2 L (80.0-100.0) fL MCH 23.5 L (25.0-35.0) pg RDW 16.0 H (11.5-15.5) % Neutrophils # 12.4 H (1.3-7.7) k/uL
[2019-12-16] MEDS: IBUPROFEN 600 MG TAB PO PRN (23:05)
[2019-12-17] MEDS: LACTATED RINGERS 1,000 ML IV SCH (02:02)
[2019-12-17] MEDS: HYDROcodone/APAP 7.5-325MG 1 EACH TAB PO PRN ×3 (02:53→21:43)
[2019-12-17] MEDS: IBUPROFEN 600 MG TAB PO PRN ×2 (08:18→18:18)
[2019-12-17] MEDS: SENNOSIDES-DOCUSATE SODIUM 1 EACH TAB PO SCH ×2 (08:20→21:43)
--- NOTE | 2019-12-17 11:32 | P.PNOBGPC ---
Subjective - Subjective Principal diagnosis: Post op day 2 Interval history: no complaints. doing well. tolerating diet and ambulating without difficulty. Patient reports: Reports appetite normal, Reports voiding normally, Reports pain well controlled, Reports ambulating normally [place]: doing well Objective - Vital Signs Latest vital signs: Vital Signs Temp Pulse Resp BP Pulse Ox 12/17/19 08:00 98.3 F 82 18 120/66 95 12/17/19 00:00 99.0 F 100 16 114/61 98 12/16/19 20:00 98.6 F 91 16 106/68 12/16/19 17:00 98.5 F 97 18 114/63 100 12/16/19 12:00 98.3 F 83 16 113/78 98 Intake and Output 12/16/19 12/17/19 12/17/19 22:59 06:59 14:59 Output Total 1 Balance -1 Output: Urine 1 Other: # Voids 1 - Exam Lungs: bilateral: normal Chest: Normal S1, Normal S2 Extremities: Present: normal Abdomen: Present: normal appearance, soft. Absent: distention, tenderness Incision: Present: normal, dry, intact Uterus: Present: normal, firm
[2019-12-18] MEDS: IBUPROFEN 600 MG TAB PO PRN ×2 (01:39→08:34)
[2019-12-18] MEDS: HYDROcodone/APAP 7.5-325MG 1 EACH TAB PO PRN ×2 (04:43→13:11)
[2019-12-18 06:14] VITALS: RESP 16
[2019-12-18] MEDS ORDERED: BENZOCAINE/MENTHOL LOZENG 1 EACH LOZENGE MUCOUS MEM PRN (08:19)
--- NOTE | 2019-12-18 08:19 | P.DS ---
Providers Date of admission: 12/15/19 06:27 Expected date of discharge: 12/18/19 Attending physician: Zana Dave Primary care physician: Stated None Hospital Course: Overall patient is doing well. She does have a sore throat and some incisional tenderness but otherwise she is feeling well. She is asking for discharged home today. Assuming she is able to continue to improve we'll plan discharged to home later today. Vital signs are stable and afebrile. Heart regular, lungs clear, extremities without pain. She is ambulating and voiding without difficulty and is tolerating her diet. She is passing flatus. Her incision is otherwise clean dry and intact and she has positive bowel sounds. Assessment postop day 3. Plan discharged home follow up with me in 1 week. Prescription for [place] and Motrin were provided. All the questions were answered for her discharge instructions thoroughly reviewed. She is stable for discharge today. Patient Condition at Discharge: Good Plan - Discharge Summary New Discharge Prescriptions: New Ibuprofen [Motrin] 600 mg PO Q6HR PRN #30 tab PRN Reason: Pain HYDROcodone/APAP 5-325MG [[place] 5-325] 1 tab PO Q4HR PRN #30 tab PRN Reason: Pain No Action Albuterol Inhaler [Ventolin Hfa Inhaler] 1 - 2 puff INHALATION RT-Q6H PRN PRN Reason: Shortness Of Breath Discharge Medication List Albuterol Inhaler [Ventolin Hfa Inhaler] 1 - 2 puff INHALATION RT-Q6H PRN 08/23/17 [History] HYDROcodone/APAP 5-325MG [[place] 5-325] 1 tab PO Q4HR PRN #30 tab 12/18/19 [Rx] Ibuprofen [Motrin] 600 mg PO Q6HR PRN #30 tab 12/18/19 [Rx] Follow up Appointment(s)/Referral(s): Zana Dave DO [Doctor of Osteopathic Medicine] - 1 Week Activity/Diet/Wound Care/Special Instructions: Heavy lifting, limit stairs and driving, and pelvic rest. If any high temperatures, heavy bleeding, or severe pain call my office Discharge Disposition: HOME SELF-CARE
[2019-12-18] MEDS: SENNOSIDES-DOCUSATE SODIUM 1 EACH TAB PO SCH (08:35)
[2019-12-18 08:42] VITALS: BP 114/72; PULSE 65; TEMP 98.7
== END 2019-12-18 15:37 | disposition home or self-care (01) | DRG 788 ==
LOC: 4FBP 12-15 06:27
PROVIDERS: ADMIT Obstetrics & Gynecology; ATTEND Obstetrics & Gynecology
PROC: 10D00Z1 Extraction of Products of Conception, Low, Open Approach (ICD-10-PCS; 2019-12-15)
PROC: 10907ZC Drainage of Amniotic Fluid, Therapeutic from Products of Conception, Via Natural or Artificial Opening (ICD-10-PCS; principal; 2019-12-15 20:07)
DX: O76 Abnormality in fetal heart rate and rhythm complicating labor and delivery (principal); O77.0 Labor and delivery complicated by meconium in amniotic fluid; O99.52 Diseases of the respiratory system complicating childbirth; O99.344 Other mental disorders complicating childbirth; O67.9 Intrapartum hemorrhage, unspecified; Z3A.39 39 weeks gestation of pregnancy; Z37.0 Single live birth; F41.9 Anxiety disorder, unspecified; J45.909 Unspecified asthma, uncomplicated; O99.824 Streptococcus B carrier state complicating childbirth
CPT/HCPCS: 74018; 85025; 86850; 86900; 86901; 88307

== ENCOUNTER 2020-11-10 22:11 | Outpatient (CLI) | payer OTHER ==
[2020-11-10 23:53] VITALS: BP 129/77; PULSE 131; RESP 16; TEMP 97.2
--- NOTE | 2020-11-11 05:41 | P.MSEPDOC ---
Presenting Problems - Arrival Data Date of Arrival on Unit: 11/10/20 Time of Arrival on Unit: 22:11 Mode of Transport: Ambulatory - Complaint OB-Reason for Admission/Chief Complaint: Pain Comment: pelvic pressure Medical History - Information : 4 Para: 2 Term: 2 : 0 Abortions: Spontaneous or Elective: 1 Number of Living Children: 2 - Gestational Age Gestational Age by AIDEE (wks/days): 36 Weeks and 3 Days Review of Systems - Review of Systems Constitutional: No problems Breast: No problems ENT: No problems Cardiovascular: No problems Respiratory: No problems Gastrointestinal: No problems Genitourinary: No problems Musculoskeletal: No problems Neurological: No problems Skin: No problems Vital Signs - Temperature Temperature: 97.2 F Temperature Source: Temporal Artery Scan - Pulse Right Sitting Pulse Rate: 131 Pulse Assessment Method: Automatic Cuff - Respirations Respiratory Rate: 16 Oxygen Delivery Method: Room Air - Blood Pressure Right Arm Blood Pressure: 129/77 Blood Pressure Mean: 94 Blood Pressure Source: Automatic Cuff Medical Screen Scoring (Pre) - Cervical Exam Dilation: Exam Deferred Effacement: Exam Deferred Membranes: Intact - Uterine Contractions Frequency: N/A Duration: N/A Intensity: N/A - Maternal Vital Signs Maternal Temperature: N/A Maternal Blood Pressure: N/A Signs of Preeclampsia: N/A Maternal Respirations: N/A - Maternal Trauma Maternal Trauma: N/A - Assessment - Baby A Baseline FHR: 140 Heart Rate - NICHD Category: Category I (Normal) = 0 NST: Reactive Position: N/A Station: N/A - Total Score - Baby A Total Score - Baby A: 0 - Total Score - Baby B Total Score - Baby B: 0 - Total Score - Baby C Total Score - Baby C: 0 - Level of Risk - Baby A Level of Risk - Baby A: Low (0-5) - Level of Risk - Baby B Level of Risk - Baby B: Low (0-5) - Level of Risk - Baby C Level of Risk - Baby C: Low (0-5) Physician Notification (Pre) - Physician Notified Physician Notified Date: 11/10/20 Physician Notified Time: 23:09 New Order Received: Yes (d/c home) Disposition - Disposition OB Disposition: Discharge to home Discharge Date: 11/10/20 Discharge Time: 23:42 I agree with the RN Medical Screening Exam: Yes Risk & Benefit of care provided described in d/c instruction: Yes Diagnosis: FALSE LABOR BEFORE 37 COMPLETED WEEKS OF GEST, THIRD TRI
== END 2020-11-10 23:42 | disposition home or self-care (01) ==
LOC: FBPOP 22:11
PROVIDERS: ATTEND Obstetrics & Gynecology
DX: O47.03 False labor before 37 completed weeks of gestation, third trimester (principal); Z3A.36 36 weeks gestation of pregnancy
CPT/HCPCS: 59025; G0463; 99213

== ENCOUNTER 2020-12-05 06:00 | Inpatient (IN) | payer OTHER ==
[2020-11-30 14:32] VITALS: BMI 38.0
[2020-12-05] MEDS ORDERED: CITRIC ACID-SODIUM CITRATE 15 ML CUP PO ONE (06:12)
[2020-12-05 06:45] LABS: Anisocytosis Slight; Basophils % (A) 0 %; Eosinophils # (A) 0.1 k/uL (0-0.7); Eosinophils % (A) 1 %; HCT 32.7 % (34.0-46.0); HGB 10.9 gm/dL (11.4-16.0); Hypochromasia Slight; Lymphocytes # (A) 1.4 k/uL (1.0-4.8); Lymphocytes % (A) 17 %; MCH 25.9 pg (25.0-35.0); MCHC 33.4 g/dL (31.0-37.0); MCV 77.4 fL (80.0-100.0); Microcytosis Slight; Monocytes # (A) 0.6 k/uL (0-1.0); Monocytes % (A) 7 %; Neutrophils # (A) 6.2 k/uL (1.3-7.7); Neutrophils % (A) 73 %; Platelet Count 201 k/uL (150-450); Poikilocytosis Slight; RBC 4.23 m/uL (3.80-5.40); RDW 16.7 % (11.5-15.5); WBC 8.4 k/uL (3.8-10.6)
[2020-12-05] MEDS ORDERED: LACTATED RINGERS 1,000 ML IV SCH (06:45)
[2020-12-05] MEDS ORDERED: MORPHINE SULFATE (PF) 0.3 MG/0.3 ML SYR ONE (08:06)
[2020-12-05] MEDS ORDERED: OXYTOCIN 10 UNIT/ML 1 ML VIAL ONE (08:06)
[2020-12-05] MEDS ORDERED: ONDANSETRON 4 MG/2 ML VIAL ONE (08:06)
[2020-12-05] MEDS ORDERED: PHENYLEPHRINE 10 MG/ML VIAL ONE (08:06)
[2020-12-05] MEDS ORDERED: KETOROLAC 15 MG/ML 1 ML VIAL ONE (08:06)
[2020-12-05] MEDS ORDERED: NALBUPHINE 10 MG/ML (1 ML AMP) ONE (08:06)
[2020-12-05] MEDS ORDERED: NALOXONE 0.4 MG/ML 1 ML VIAL IV PRN (08:44)
[2020-12-05] MEDS ORDERED: METOCLOPRAMIDE 5 MG/ML 2 ML VIAL IVP PRN (08:44)
[2020-12-05] MEDS ORDERED: ACETAMINOPHEN TAB 325 MG TAB PO PRN (08:44)
[2020-12-05] MEDS ORDERED: diphenhydrAMINE 50 MG/ML 1 ML VIAL IVP PRN ×2 (08:44)
[2020-12-05] MEDS ORDERED: diphenhydrAMINE 50 MG CAP PO PRN (08:44)
[2020-12-05] MEDS ORDERED: diphenhydrAMINE 25 MG CAP PO PRN (08:44)
[2020-12-05] MEDS ORDERED: ONDANSETRON 4 MG/2 ML VIAL IVP PRN (08:44)
[2020-12-05] MEDS ORDERED: SIMETHICONE 80 MG CHEWABLE PO PRN (08:44)
[2020-12-05] MEDS ORDERED: ZOLPIDEM 5 MG TAB PO PRN (08:44)
[2020-12-05] MEDS ORDERED: KETOROLAC 15 MG/ML 1 ML VIAL IVP PRN (08:44)
[2020-12-05] MEDS: LACTATED RINGERS 1,000 ML IV SCH (08:45)
--- NOTE | 2020-12-05 08:47 | P.HPOB ---
History of Present Illness H&P Date: 12/05/20 Chief Complaint: at term: Prior section Patient is a 20-year-old G3 for P2 at 39 weeks' gestation arrives for repeat section. Risk/benefits/alternatives to this were discussed with the patient in detail and all questions were answered for her prior to proceeding to the operative. She had initially been discussed with a trial of labor after tolu arean section but she declines and would like a repeat section. She is otherwise doing well at this time. Her course has been unremarkable and she is feeling well. All questions are answered for her prior to proceeding to the operating room. Past Medical History Past Medical History: Asthma History of Any Multi-Drug Resistant Organisms: MRSA Date of last positivie culture/infection: 2014 MDRO Source:: right cat Past Surgical History: Section Past Anesthesia/Blood Transfusion Reactions: No Reported Reaction Past Psychological History: No Psychological Hx Reported Smoking Status: Former smoker Past Alcohol Use History: None Reported Additional Past Alcohol Use History / Comment(s): quit smoking 2017 Past Drug Use History: None Reported - Past Family History Father History Unknown: Yes Family Medical History: No Reported History Medications and Allergies Home Medications Medication Instructions Recorded Confirmed Type Albuterol Inhaler (Mhu) [Ventolin 1 - 2 puff INHALATION RT-Q6H PRN 08/23/17 12/05/20 History Hfa Inhaler] Pnv No.95/Ferrous Fum/Folic AC 1 each PO DAILY 11/30/20 12/05/20 History [ Multivitamin Tablet] Allergies Allergy/AdvReac Type Severity Reaction Status Date / Time No Known Allergies Allergy Verified 12/05/20 06:12 Exam Osteopathic Statement: *. No significant issues noted on an osteopathic structural exam other than those noted in the History and Physical/Consult. Vital Signs Temp Pulse Resp BP Pulse Ox 12/05/20 06:11 97.7 F 102 H 16 110/58 98 Intake and Output 12/04/20 12/05/20 12/05/20 22:59 06:59 14:59 Other: Weight 94.347 kg - OBG Physical Exam Breast: both: normal (no masses) Abdomen: bowel sounds normal, no diffuse tenderness, no bruit present, no guarding noted, no hepatomegaly, no splenomegaly, no mass Vulva: both: normal Vagina: normal moisture, no discharge Cervix: no lesion, no discharge Uterus: normal size, normal contour Adnexa: both: normal Anus/Rectum: normal perianal skin, no rectal mass, no hemorrhoids, heme negative Results Result Diagrams: 12/05/20 06:30 Abnormal Lab Results - Last 24 Hours (Table) 12/05/20 Range/Units 06:30 Hgb 10.9 L (11.4-16.0) gm/dL Hct 32.7 L (34.0-46.0) % MCV 77.4 L (80.0-100.0) fL RDW 16.7 H (11.5-15.5) %
--- NOTE | 2020-12-05 08:50 | P.OP ---
Date of Procedure: 12/05/20 Preoperative Diagnosis: Intrauterine at term: Prior section Postoperative Diagnosis: Same Procedure(s) Performed: Repeat low transverse section Anesthesia: spinal Surgeon: Zana Dave Cloth Bale Header #1: Vivien Patino Estimated Blood Loss (ml): 500 IV fluids (ml): 1,000 Urine output (ml): 300 Pathology: none sent Condition: stable Disposition: floor Operative Findings: Male scores of 9 and 9 at one and 5 minutes just [place] and weight was 7 lbs. 11 oz. Description of Procedure: Patient was taken to the operative suite where a spinal anesthetic was found be adequate. She was prepped and draped in normal sterile fashion and placed in the dorsal supine position with leftward tilt. Initially a Pfannenstiel skin incision was made with removal of hypertrophic scar. Once this was completed second knife was used to go down to layer of the fascia which was nicked in the midline and extended with Nuñez scissors. Superior and inferior aspect of this incision were then grasped tented up and bluntly and sharply dissected off the rectus muscles. Rectus muscles were then divided in the midline and sharp dissection through the peritoneum was performed. This opening was then extended superiorly and inferiorly with good visualization of both bowel bladder. Bladder blade was then placed bladder flap identified and entered with at some scissors and carried across face uterus with Metzenbaum scissors. It was then dissected out of the operative field. Knife was then used to incise uterus this opening was then extended bluntly following. Entry with a hemostat. Clear fluid is noted. Head was then atraumatically delivered without difficulty and mouth nares were bulb suctioned. Anterior posterior shoulders then easily deliv ered followed by the remainder the baby. Umbilical cord was then clamped cut usual fashion an nursery personnel was present to assume care. Placenta was then delivered intact. Uterus was then exteriorized cleared of clots and debris and closed in 2 layers with 0 Vicryl suture. Once excellent hemostasis was obtained blood and debris was suctioned from the posterior cul-de-sac and uterus was reinserted into the abdomen. Peritoneal layer was then reapproximated with 3-0 Vicryl. Fascial layer was then closed with 0 Vicryl suture. One layer of 3-0 Vicryl was placed in the deep subcuticular tissues to reapproximate the skin and close that space. Skin was then closed with torsten. Sponge, lap, needle counts were all correct 2. Patient was then taken to the recovery room in stable and satisfactory condition.
[2020-12-05] MEDS: SENNOSIDES-DOCUSATE SODIUM 1 EACH TAB PO SCH (19:36)
[2020-12-05] MEDS: IBUPROFEN 600 MG TAB PO PRN (21:29)
[2020-12-06] MEDS: HYDROcodone/APAP 7.5-325MG 1 EACH TAB PO PRN ×3 (04:40→19:39)
[2020-12-06 07:33] LABS: Anisocytosis Slight; Basophils % (A) 0 %; Eosinophils # (A) 0.2 k/uL (0-0.7); Eosinophils % (A) 2 %; HCT 30.9 % (34.0-46.0); HGB 9.7 gm/dL (11.4-16.0); Hypochromasia Moderate; Lymphocytes % (A) 12 %; MCH 24.9 pg (25.0-35.0); MCHC 31.4 g/dL (31.0-37.0); MCV 79.3 fL (80.0-100.0); Mean Platelet Volume 9.3; Microcytosis Slight; Monocytes # (A) 0.6 k/uL (0-1.0); Monocytes % (A) 6 %; Neutrophils # (A) 6.9 k/uL (1.3-7.7); Neutrophils % (A) 78 %; Platelet Count 168 k/uL (150-450); Poikilocytosis Slight; RDW 16.9 % (11.5-15.5); WBC 8.8 k/uL (3.8-10.6)
[2020-12-06] MEDS: IBUPROFEN 600 MG TAB PO PRN ×3 (08:36→22:33)
[2020-12-06] MEDS: SENNOSIDES-DOCUSATE SODIUM 1 EACH TAB PO SCH ×2 (08:36→19:39)
--- NOTE | 2020-12-06 09:39 | P.PN ---
Progress Note - Text Date: 12/06/2020 Time: 09:28 The patient is status post section Vital signs stable VAS: 0-10 Patient has no complaints of pain. The patient incurred some minimal itching yesterday, this itching is now subsiding. Pain meds to be managed by service.
--- NOTE | 2020-12-06 10:36 | P.PNOBGPC ---
Subjective - Subjective Principal diagnosis: Post op day 1 Interval history: doing very well. all questions answered Patient reports: Reports appetite normal, Reports voiding normally, Reports pain well controlled, Reports ambulating normally : doing well Objective - Vital Signs Latest vital signs: Vital Signs Temp Pulse Resp BP Pulse Ox 12/06/20 08:15 98.0 F 80 16 94/61 99 12/06/20 04:00 97.7 F 59 L 16 101/64 12/06/20 00:00 97.6 F 61 16 103/68 12/05/20 19:53 97.5 F L 61 16 90/52 96 12/05/20 16:00 98 F 68 16 104/62 99 12/05/20 10:45 97.9 F 72 16 116/55 96 Intake and Output 12/05/20 12/06/20 12/06/20 22:59 06:59 14:59 Output Total 1270 Balance -1270 Output: Urine 1270 Other: # Voids 1 2 - Exam Lungs: bilateral: normal Chest: Normal S1, Normal S2 Extremities: Present: normal Abdomen: Present: normal appearance, soft. Absent: distention, tenderness Incision: Present: normal, dry, intact Uterus: Present: normal, firm - Labs Labs: Abnormal Lab Results - Last 24 Hours (Table) 12/06/20 Range/Units 07:05 Hgb 9.7 L (11.4-16.0) gm/dL Hct 30.9 L (34.0-46.0) % MCV 79.3 L (80.0-100.0) fL MCH 24.9 L (25.0-35.0) pg RDW 16.9 H (11.5-15.5) %
[2020-12-06] MEDS: LACTATED RINGERS 1,000 ML IV SCH (20:30)
[2020-12-07] MEDS: HYDROcodone/APAP 7.5-325MG 1 EACH TAB PO PRN ×2 (01:31→07:42)
[2020-12-07] MEDS: IBUPROFEN 600 MG TAB PO PRN ×2 (04:38→10:18)
[2020-12-07 09:01] VITALS: BP 115/72; PULSE 72; RESP 18; TEMP 98.3
[2020-12-07] MEDS: SENNOSIDES-DOCUSATE SODIUM 1 EACH TAB PO SCH (09:03)
--- NOTE | 2020-12-07 09:07 | P.DS ---
Providers Date of admission: 12/05/20 06:05 Expected date of discharge: 12/07/20 Attending physician: Zana Dave Primary care physician: Stated None Hospital Course: So is doing very well postop day 2. She is ambulating, voiding and tolerating her diet. She voices no complaints and is requesting discharge home today. Vital signs are stable and afebrile heart regular lungs clear abdomen soft and nontender with positive bowel sounds. Incision is otherwise clean dry and intact. Extremities are without pain. Assessment postop day 2. Plan discharged home follow up with me on Saturday for staple removal all questions are answered for her at this time and she is stable for discharge this time. Patient Condition at Discharge: Good Plan - Discharge Summary Discharge Rx Participant: Yes New Discharge Prescriptions: New Ibuprofen [Motrin] 600 mg PO Q6HR PRN #30 tab PRN Reason: Pain HYDROcodone/APAP 5-325MG [[place] 5-325] 1 tab PO Q4HR PRN #30 tab PRN Reason: Pain No Action Albuterol Inhaler (Mhu) [Ventolin Hfa Inhaler] 1 - 2 puff INHALATION RT-Q6H PRN PRN Reason: Shortness Of Breath Pnv No.95/Ferrous Fum/Folic AC [ Multivitamin Tablet] 1 each PO DAILY Discharge Medication List Albuterol Inhaler (Mhu) [Ventolin Hfa Inhaler] 1 - 2 puff INHALATION RT-Q6H PRN 08/23/17 [History] Pnv No.95/Ferrous Fum/Folic AC [ Multivitamin Tablet] 1 each PO DAILY 11/30/20 [History] HYDROcodone/APAP 5-325MG [[place] 5-325] 1 tab PO Q4HR PRN #30 tab 12/07/20 [Rx] Ibuprofen [Motrin] 600 mg PO Q6HR PRN #30 tab 12/07/20 [Rx] Follow up Appointment(s)/Referral(s): Zana Dave DO [Doctor of Osteopathic Medicine] - 12/09/20 Activity/Diet/Wound Care/Special Instructions: , Limit stairs and driving, and pelvic rest. If any high temperatures, heavy bleeding, or severe pain call my office. She will return on Saturday to my office for staple removal. Discharge Disposition: HOME SELF-CARE
== END 2020-12-07 12:10 | disposition home or self-care (01) | DRG 788 ==
LOC: 4FBP 06:05
PROVIDERS: ADMIT Obstetrics & Gynecology; ATTEND Obstetrics & Gynecology
PROC: 10D00Z1 Extraction of Products of Conception, Low, Open Approach (ICD-10-PCS; principal; 2020-12-05 08:00)
DX: O34.211 Maternal care for low transverse scar from previous cesarean delivery (principal); J45.909 Unspecified asthma, uncomplicated; N85.8 Other specified noninflammatory disorders of uterus; O99.52 Diseases of the respiratory system complicating childbirth; O99.62 Diseases of the digestive system complicating childbirth; K21.9 Gastro-esophageal reflux disease without esophagitis; Z37.0 Single live birth; Z3A.39 39 weeks gestation of pregnancy; Z79.899 Other long term (current) drug therapy; Z87.891 Personal history of nicotine dependence; Z86.14 Personal history of Methicillin resistant Staphylococcus aureus infection
CPT/HCPCS: 85025; 86850; 86900; 86901

== ENCOUNTER 2020-12-11 21:12 | Emergency (ER) | payer OTHER ==
[2020-12-11 21:20] VITALS: RESP 19; TEMP 98.4
[2020-12-11] MEDS ORDERED: CEPHALEXIN 500MG STARTER PACK 4 CAP BTL PO STA (22:10)
--- NOTE | 2020-12-11 22:14 | ED ---
General Adult HPI - General Chief complaint: Urogenital Stated complaint: Poss infection on Csection scar Time Seen by Provider: 12/11/20 21:23 Source: patient, RN notes reviewed Mode of arrival: ambulatory - History of Present Illness Initial comments: 20-year-old female currently 6 days status post presents to the emergency department for drainage from scar. States that this started last night however worsen today. States it is yellow and has a foul odor. Patient denies fevers. She denies any significant pain around the abdominal scar. She does have some mild pressure during and after urination but is otherwise denying abdominal pain. She reports she has an appointment with her IT SALES EXECUTIVE tomorrow but wanted to have it checked out today. Patient has no other complaints at this time including shortness of breath, chest pain, abdominal pain, nausea or vomiting, headache, or visual changes. - Related Data Home Medications Medication Instructions Recorded Confirmed Albuterol Inhaler (Mhu) [Ventolin 1 - 2 puff INHALATION RT-Q6H PRN 08/23/17 12/05/20 Hfa Inhaler] Pnv No.95/Ferrous Fum/Folic AC 1 each PO DAILY 11/30/20 12/05/20 [ Multivitamin Tablet] Previous Rx's Medication Instructions Recorded HYDROcodone/APAP 5-325MG [[place] 1 tab PO Q4HR PRN #30 tab 12/07/20 5-325] Ibuprofen [Motrin] 600 mg PO Q6HR PRN #30 tab 12/07/20 Cephalexin [Keflex] 500 mg PO Q6HR 10 Days #40 cap 12/11/20 Allergies Allergy/AdvReac Type Severity Reaction Status Date / Time No Known Allergies Allergy Verified 12/11/20 21:20 Review of Systems ROS Statement: Those systems with pertinent positive or pertinent negative responses have been documented in the HPI. ROS Other: All systems not noted in ROS Statement are negative. Past Medical History Past Medical History: Asthma History of Any Multi-Drug Resistant Organisms: MRSA Date of last positivie culture/infection: 2014 MDRO Source:: right cat Past Surgical History: Section Past Anesthesia/Blood Transfusion Reactions: No Reported Reaction Past Psychological History: No Psychological Hx Reported Smoking Status: Former smoker Past Alcohol Use History: None Reported Past Drug Use History: None Reported - Past Family History Father History Unknown: Yes Family Medical History: No Reported History General Exam General appearance: alert Head exam: Present: atraumatic Eye exam: Present: normal appearance ENT exam: Present: normal exam, mucous membranes moist Neck exam: Present: normal inspection, full ROM Respiratory exam: Present: normal lung sounds bilaterally. Absent: respiratory distress, wheezes Cardiovascular Exam: Present: regular rate, normal rhythm, normal heart sounds GI/Abdominal exam: Present: soft, normal bowel sounds, other (Patient has C- section scar without significant drainage or erythema. No abscess is palpated. No tenderness.). Absent: distended, tenderness, guarding, rebound, rigid Course Vital Signs 12/11/20 21:15 Temperature 98.4 F Pulse Rate 64 Respiratory 19 Rate Blood Pressure 143/82 O2 Sat by Pulse 100 Oximetry Medical Decision Making - Medical Decision Making Vitals are stable. Patient is afebrile. She is well-appearing with no history of fevers at home. She is having mild yellow drainage with a foul odor. There is no drainage on exam at this time. No tenderness around the site or on the abdomen. No erythema. Dr. Casillas are also evaluated abdomen and agrees. However as patient is having foul odor we will start her on antibiotic. Urinalysis was also obtained given pressure when urinating. She has an appointment with her OB tomorrow. She'll return here for any worsening symptoms in the meantime. Disposition Clinical Impression: H/O section Disposition: HOME SELF-CARE Condition: Good Instructions (If sedation given, give patient instructions): Wound Infection (ED) Additional Instructions: Please take your antibiotic as directed. Follow-up with IT SALES EXECUTIVE at your appointment tomorrow. Return to the emergency room for any worsening symptoms. Prescriptions: Cephalexin [Keflex] 500 mg PO Q6HR 10 Days #40 cap Is patient prescribed a controlled substance at d/c from ED?: No Referrals: Zana Dave DO [Doctor of Osteopathic Medicine] - 1-2 days Time of Disposition: 22:09
[2020-12-11 22:47] LABS: Appearance,Urine Cloudy (Clear); Bacteria,Urine Occasional /hpf; Bilirubin,Urine Negative (Negative); Blood,Urine Large (Negative); Cellular Casts,Urine 8 /lpf (0); Color,Urine Light Red; Glucose,Urine (UA) Negative (Negative); Ketones,Urine Negative (Negative); Leukocyte Esterase,Urine Large (Negative); Mucus,Urine Moderate /hpf; Nitrite,Urine Negative (Negative); Protein,Urine 1+ (Negative); RBC,Urine >182 /hpf (0-5); Specific Gravity,Urine 1.023 (1.001-1.035); Urobilinogen,Urine <2.0 mg/dL (<2.0); WBC,Urine 140 /hpf (0-5)
[2020-12-11 22:52] VITALS: BP 137/74; PULSE 72
== END 2020-12-11 22:52 | disposition home or self-care (01) ==
LOC: EC 21:12
DX: O90.89 Other complications of the puerperium, not elsewhere classified (principal); J45.909 Unspecified asthma, uncomplicated; Z87.891 Personal history of nicotine dependence
CPT/HCPCS: 81001; 87086; 99283

== ENCOUNTER 2022-03-11 22:02 | Emergency (ER) | payer OTHER ==
[2022-03-11 22:40] VITALS: RESP 18; TEMP 98.4
[2022-03-12] MEDS ORDERED: SODIUM CHLORIDE 0.9% 1,000 ML IV STA
[2022-03-12] MEDS ORDERED: KETOROLAC 15 MG/ML 1 ML VIAL IVP STA
[2022-03-12] MEDS ORDERED: METOCLOPRAMIDE 5 MG/ML 2 ML VIAL IVP STA
[2022-03-12] MEDS ORDERED: diphenhydrAMINE 50 MG/ML 1 ML VIAL IVP STA
--- NOTE | 2022-03-12 00:08 | ED ---
Headache HPI - General Chief Complaint: Headache Stated Complaint: Headache Time Seen by Provider: 03/11/22 23:52 Source: RN notes reviewed Mode of arrival: ambulatory Limitations: no limitations - History of Present Illness Initial Comments: This is a pleasant 21-year-old female presents to the emergency room complaining of a frontal headache which is been present for 3 days. Patient states that she has had sinus pressure for at least 10 days. She states it has been constant pain but sometimes is worse than others. Currently 8 out of 10 in intensity. Patient has no history of diagnosed headaches or migraines. Patient states that occasionally she was getting some tingling in both fingertips. States the pain seems to be worse at night. Patient has tried [id number] medications with no relief. She denies chance of . She states at its worse she is getting a lot of photophobia. No other symptomology aside from nausea. no fever or chills, no changes in vision or hearing, no sore throat or difficulty with speech, no neck pain, no chest pain or shortness of breath, no abdominal pain, no vomiting, no changes in urination or bowel movements, no focal weakness, no extremity pain, no skin rashes or lesions. MD Complaint: headache - Related Data Home Medications Medication Instructions Recorded Confirmed Albuterol Inhaler (Mhu) [Ventolin 1 - 2 puff INHALATION RT-Q6H PRN 08/23/17 12/05/20 Hfa Inhaler] Pnv No.95/Ferrous Fum/Folic AC 1 each PO DAILY 11/30/20 12/05/20 [ Multivitamin Tablet] Previous Rx's Medication Instructions Recorded HYDROcodone/APAP 5-325MG [[place] 1 tab PO Q4HR PRN #30 tab 12/07/20 5-325] Ibuprofen [Motrin] 600 mg PO Q6HR PRN #30 tab 12/07/20 Cephalexin [Keflex] 500 mg PO Q6HR 10 Days #40 cap 12/11/20 Acetaminophen [Tylenol] 500 mg PO Q4-6H PRN #24 tab 03/12/22 Amoxicillin/Potassium Clav 1 tab PO BID 7 Days #14 tab 03/12/22 [Augmentin 875-125 Tablet] Naproxen [Naprosyn] 375 mg PO Q12HR PRN #20 tablet 03/12/22 Pseudoephedrine [Sudafed] 30 mg PO Q6H PRN #24 tablet 03/12/22 Allergies Allergy/AdvReac Type Severity Reaction Status Date / Time No Known Allergies Allergy Verified 03/11/22 22:41 Review of Systems ROS Statement: Those systems with pertinent positive or pertinent negative responses have been documented in the HPI. ROS Other: All systems not noted in ROS Statement are negative. Past Medical History Past Medical History: Asthma History of Any Multi-Drug Resistant Organisms: MRSA Date of last positivie culture/infection: 2014 MDRO Source:: right cat Past Surgical History: Section Past Anesthesia/Blood Transfusion Reactions: No Reported Reaction Past Psychological History: No Psychological Hx Reported Smoking Status: Former smoker Past Alcohol Use History: Occasional Past Drug Use History: None Reported - Past Family History Father History Unknown: Yes Family Medical History: No Reported History General Exam - General Exam Comments Initial Comments: This is a pleasant appearing 22-year-old female mild distress. Does not appear to be ill or toxic. Cranial nerves II through XII are intact. Limitations: no limitations General appearance: alert, in no apparent distress Head exam: Present: atraumatic, normocephalic, normal inspection Eye exam: Present: normal appearance, PERRL, EOMI. Absent: scleral icterus, conjunctival injection, periorbital swelling Pupils: Present: normal accommodation ENT exam: Present: normal exam, normal oropharynx, mucous membranes moist, TM's normal bilaterally, normal external ear exam (Mild edematous turbinates. No nasal mucosal erythema. No nasal discharge. No maxillary tenderness), other (Patient does have some tenderness over the frontal sinus area. No erythema.). Absent: mucous membranes dry Neck exam: Present: normal inspection, full ROM, other (No nuchal rigidity). Absent: tenderness, meningismus, lymphadenopathy Respiratory exam: Present: normal lung sounds bilaterally. Absent: respiratory distress, wheezes, rales, rhonchi, stridor Cardiovascular Exam: Present: regular rate, normal rhythm, normal heart sounds. Absent: systolic murmur, diastolic murmur, rubs, gallop, clicks GI/Abdominal exam: Present: soft, normal bowel sounds. Absent: distended, tenderness, guarding, rebound, rigid Extremities exam: Present: normal inspection, full ROM, normal capillary refill. Absent: tenderness, pedal edema, joint swelling, calf tenderness Back exam: Present: normal inspection Neurological exam: Present: alert, oriented X3, CN II-XII intact. Absent: altered, normal gait, motor sensory deficit, reflexes normal Expanded Patient oriented to: Present: person, place, time Speech: Present: fluid speech Cerebellar function: Finger to Nose: Normal, Heel to Cat: Normal, Romberg: Normal Upper motor neuron: Wesley Neglect: Normal, Pronator Drift: Normal, Babinski Sign: Normal, Sensory Extinction: Normal Eye Response: (4) open spontaneously Motor Response: (6) obeys commands Verbal Response: (5) oriented Psychiatric exam: Present: normal affect, normal mood Skin exam: Present: warm, dry, intact, normal color. Absent: rash Course Vital Signs 03/11/22 22:38 Temperature 98.4 F Pulse Rate 96 Respiratory 18 Rate Blood Pressure 130/80 O2 Sat by Pulse 99 Oximetry Medical Decision Making - Medical Decision Making We'll obtain a computed tomography scan as this is a new onset symptoms for the patient who has no history of significant headaches. Suspect this is related to frontal sinus pressure. However the patient shows no evidence of bacterial infection. Patient neurologically intact. We'll try metoclopramide, diphenhydramine, and ketorolac. We'll treat the patient with antibiotics since she has had sinus pressure for at least 10 days. With worsening headache over the past 3 days. We'll cover the patient with amoxicillin/clavulanic acid for 7 days. Computed tomography scan shows pansinusitis. Patient has significant symptoms. Patient can also use [id number] nasal decongestants. Patient was told to return to the ER for any signs or symptoms worsen. Told to return immediately if any other problems arise. All questions answered. Treatment plan discussed. Patient in agreement Every effort has been made to ensure accuracy of this dictation. However, due to the limitations of electronic medical records and dictation devices, errors in charting still occur. - Lab Data Result diagrams: 03/12/22 00:10 03/12/22 00:10 Lab Results 03/12/22 03/12/22 03/12/22 Range/Units 00:10 00:10 00:10 WBC 13.2 H (3.8-10.6) k/uL RBC 4.27 (3.80-5.40) m/uL Hgb 12.5 (11.4-16.0) gm/dL Hct 37.1 (34.0-46.0) % MCV 87.0 (80.0-100.0) fL MCH 29.3 (25.0-35.0) pg MCHC 33.7 (31.0-37.0) g/dL RDW 13.4 (11.5-15.5) % Plt Count 481 H (150-450) k/uL MPV 7.4 Sodium 138 (137-145) mmol/L Potassium 4.3 (3.5-5.1) mmol/L Chloride 107 (98-107) mmol/L Carbon Dioxide 21 L (22-30) mmol/L Anion Gap 10 mmol/L BUN 7 (7-17) mg/dL Creatinine 0.53 (0.52-1.04) mg/dL Est GFR (CKD-EPI)AfAm >90 (>60 ml/min/1.73 sqM) Est GFR (CKD-EPI)NonAf >90 (>60 ml/min/1.73 sqM) Glucose 98 (74-99) mg/dL Calcium 8.9 (8.4-10.2) mg/dL Total Bilirubin 0.4 (0.2-1.3) mg/dL AST 19 (14-36) U/L ALT 14 (4-34) U/L Alkaline Phosphatase 67 (38-126) U/L Total Protein 7.7 (6.3-8.2) g/dL Albumin 4.0 (3.5-5.0) g/dL Urine HCG, Qual Not Detected (Not Detectd) Disposition Clinical Impression: Acute pansinusitis, Acute headache Disposition: HOME SELF-CARE Condition: Stable Instructions (If sedation given, give patient instructions): Sinusitis (ED), Acute Headache (ED) Additional Instructions: Follow-up with your regular physician as directed. Return to the ER immediately if any symptoms worsen, new symptoms arise, or any other problems develop. Is patient prescribed a controlled substance at d/c from ED?: No Referrals: Roger Hinton MD [STAFF PHYSICIAN] - 03/15/22
[2022-03-12 00:44] LABS: HCT 37.1 % (34.0-46.0); HGB 12.5 gm/dL (11.4-16.0); MCH 29.3 pg (25.0-35.0); MCHC 33.7 g/dL (31.0-37.0); Mean Platelet Volume 7.4; Platelet Count 481 k/uL (150-450); RBC 4.27 m/uL (3.80-5.40); RDW 13.4 % (11.5-15.5); WBC 13.2 k/uL (3.8-10.6)
--- NOTE | 2022-03-12 00:45 | CT ---
EXAMINATION TYPE: CT brain wo con DATE OF EXAM: 03/12/2022 COMPARISON: None HISTORY: frontal headache x [address] DLP: 1086.4 mGycm Automated exposure control for dose reduction was used. Images of the brain obtained without contrast. Ventricles have normal size. There is no mass effect or midline shift. There is no sign of intracrani al hemorrhage. There is mucosal thickening in the maxillary ethmoid frontal and sphenoid sinuses. The re is no focal bone destruction. Calvarium is intact. IMPRESSION: Pansinusitis. No intracranial abnormality.
[2022-03-12 00:53] LABS: ALT 14 U/L (4-34); AST 19 U/L (14-36); African American GFR (CKD) >90 (>60 ml/min/1.73 sqM); Alkaline Phosphatase 67 U/L (38-126); Anion Gap 10 mmol/L; Blood Urea Nitrogen 7 mg/dL (7-17); Calcium 8.9 mg/dL (8.4-10.2); Carbon Dioxide 21 mmol/L (22-30); Chloride 107 mmol/L (98-107); Glucose 98 mg/dL (74-99); Non-African American GFR(CKD) >90 (>60 ml/min/1.73 sqM); Potassium 4.3 mmol/L (3.5-5.1); Sodium 138 mmol/L (137-145); Total Bilirubin 0.4 mg/dL (0.2-1.3); Total Protein 7.7 g/dL (6.3-8.2)
[2022-03-12] MEDS ORDERED: AMOXIC-POT CLAV 875-125MG 1 EACH TAB PO STA (01:10)
[2022-03-12 01:38] VITALS: BP 107/59; PULSE 88
== END 2022-03-12 01:37 | disposition home or self-care (01) ==
LOC: EC 22:02
DX: J01.40 Acute pansinusitis, unspecified (principal); J45.909 Unspecified asthma, uncomplicated; Z87.891 Personal history of nicotine dependence
CPT/HCPCS: 99284; 96374; 96375 ×2; 96361; 36415; 80053; 85027; 81025; 70450; J1200; J2765; J1885